=== PATIENT | female | born 1985 | race African-American/Black ===

== ENCOUNTER 2017-06-07 16:18 | Emergency (ER) | payer BC ==
[2017-06-07] MEDS ORDERED: AMLODIPINE BESYLATE 5 MG TABLET PO ONE (18:25)
--- NOTE | 2017-06-07 18:27 | ER Document Report ---
ED Medical Screen (RME) - General Chief Complaint: Sore Throat Stated Complaint: POSSIBLE HIVES/SORE THROAT/FOREHEAD PAIN Time Seen by Provider: 06/07/17 18:14 Mode of Arrival: Ambulatory Information source: Patient Notes: 31-year-old female with a history of hypertension in the past (previous on lisinopril, stopped because of a cough), the presents to the emergency room complaining of intermittent hives. Patient also states she has had some swelling in the forehead. Patient denies chest pain, shortness of breath. Patient denies any significant weight loss. She denies any abdominal pain. TRAVEL OUTSIDE OF THE [place] IN LAST 30 DAYS: No - HPI Onset: Just prior to arrival Onset/Duration: Gradual Quality of pain: No pain Severity: Mild Associated Symptoms: denies: Chest pain, Fever, Sinus pain/drainage Exacerbated by: Denies Relieved by: Denies Similar symptoms previously: No Recently seen / treated by doctor: No - Related Data Smoking: Non-smoker Frequency of alcohol use: None Drug Abuse: None Allergies/Adverse Reactions: No Known Allergies Allergy (Verified 06/07/17 16:23) Past Medical History - General Information source: Patient - Social History Cigarette use (# per day): No Chew tobacco use (# tins/day): No Frequency of alcohol use: None Drug Abuse: None Lives with: Family Family history: Reviewed & Not Pertinent - Past Medical History Cardiac Medical History: Reports: Hx Hypertension Renal/ Medical History: Denies: Hx Peritoneal Dialysis Surgical Hx: Negative Review of Systems - Review of Systems Constitutional: denies: Chills, Fever, Weight gain EENT: No symptoms reported Cardiovascular: See HPI Respiratory: No symptoms reported Gastrointestinal: No symptoms reported Genitourinary: No symptoms reported Female Genitourinary: No symptoms reported Musculoskeletal: No symptoms reported Skin: No symptoms reported Hematologic/Lymphatic: No symptoms reported Neurological/Psychological: No symptoms reported Physical Exam - Vital signs Vitals: Temp Pulse Resp BP Pulse Ox 97.4 F 98 20 221/132 H 99 06/07/17 16:24 06/07/17 16:24 06/07/17 16:24 06/07/17 16:24 06/07/17 16:24 Notes: Physical exam: GENERAL: 31-year-old female, alert and oriented 3, sitting up in RME. She is in no distress at all. The hives have since resolved. HEAD: Atraumatic, normocephalic. EYES: Pupils equal round and reactive to light, extraocular movements intact, sclera anicteric, conjunctiva are normal. ENT: TMs normal, nares patent, oropharynx clear without exudates. Moist mucous membranes. NECK: Normal range of motion, supple without lymphadenopathy or JVD. LUNGS: Breath sounds clear to auscultation bilaterally and equal. No wheezes rales or rhonchi. HEART: Regular rate and rhythm without murmurs, rubs or gallops. ABDOMEN: Soft, normoactive bowel sounds. No tenderness to palpation. No guarding, no rebound. No masses appreciated. EXTREMITIES: Normal range of motion, no pitting or edema. No clubbing or cyanosis. NEUROLOGICAL: Cranial nerves II through XII grossly intact. Normal speech, normal gait. PSYCH: Normal mood, normal affect. SKIN: Warm, Dry, normal turgor, no rashes or lesions noted. Course - Re-evaluation Re-evalutation: 06/07/17 19:44 : Patient's hypertension is asymptomatic. On repeat examination, her lungs are clear and her heart regular she is currently in no distress. We will start amlodipine and have given her prescription. I will have her come back in 2 days (Saturday) for repeat blood pressure check. I have asked her to call Dr. Parry's office on Saturday for repeat blood pressure check. - Vital Signs Vital signs: Temp Pulse Resp BP Pulse Ox 98.3 F 86 14 214/148 H 99 06/07/17 19:42 06/07/17 19:42 06/07/17 19:42 06/07/17 19:42 06/07/17 19:42 - Laboratory Result Diagrams: 06/07/17 18:30 06/07/17 18:30 Laboratory results interpreted by me: 06/07/17 18:30 RBC 5.45 H MCV 71 L MCH 22.1 L MCHC 31.3 L RDW 17.2 H Doctor's Discharge - Discharge Clinical Impression: Hypertension Condition: Stable Disposition: HOME, SELF-CARE Instructions: High Blood Pressure ([facility]) Additional Instructions: Recommendations: Take the blood pressure medicine as prescribed. Follow-up with Dr. Parry: Call the office on Saturday and tell them you are in the emergency room for very high blood pressure check in the ER doctor wanted you seen in the next week for repeat blood pressure check. Dr. Parry will be able to see all your blood work (his computer is hooked up with the hospital) . Return to the emergency room for any chest pain, shortness of breath or any concerns you might have. Return to the ER saturday for a repeat blood pressure check Prescriptions: Amlodipine Besylate 10 mg PO DAILY #30 tab Referrals: CHICO PARRY MD [ACTIVE STAFF] - Follow up as needed (This is the The internal medicine doctor that I want you to follow-up with. Call the office on Saturday.)
[2017-06-07 18:56] LABS: ABSOLUTE BASOPHILS # (AUTO) 0.1 10^3/uL (0.0-0.2); ABSOLUTE EOSINOPHILS # (AUTO) 0.1 10^3/uL (0.0-0.6); ABSOLUTE MONOCYTES (AUTO) 0.8 10^3/uL (0.1-1.4); ABSOLUTE NEUT (AUTO) 5.8 10^3/uL (1.7-8.2); BASOPHILS % (AUTO) 0.6 % (0-2); EOSINOPHILS % (AUTO) 1.6 % (0-6); HEMATOCRIT 38.5 % (36.0-47.0); HEMOGLOBIN 12.1 g/dL (12.0-15.5); HGB HCT DIFFERENCE -2.2; LYMPHOCYTES % (AUTO) 22.4 % (13-45); MEAN CORPUSCULAR HEMOGLOBIN 22.1 pg (27.0-33.4); MEAN CORPUSCULAR HGB CONC 31.3 g/dL (32.0-36.0); MEAN CORPUSCULAR VOLUME 71 fl (80-97); MONOCYTES % (AUTO) 9.6 % (3-13); RED BLOOD COUNT 5.45 10^6/uL (3.72-5.28); RED CELL DISTRIBUTION WIDTH 17.2 % (11.5-14.0); SEGMENTED NEUTROPHILS % (AUTO) 65.8 % (42-78); WHITE BLOOD COUNT 8.9 10^3/uL (4.0-10.5)
[2017-06-07 19:08] LABS: ALANINE AMINOTRANSFERASE 25 U/L (9-52); ALBUMIN 4.4 g/dL (3.5-5.0); ALKALINE PHOSPHATASE 90 U/L (38-126); ANION GAP 11 (5-19); ASPARTATE AMINO TRANSFERASE 18 U/L (14-36); BILIRUBIN,DIRECT 0.3 mg/dL (0.0-0.4); BILIRUBIN,TOTAL 0.5 mg/dL (0.2-1.3); BLOOD UREA NITROGEN 9 mg/dL (7-20); CALCIUM 9.6 mg/dL (8.4-10.2); CARBON DIOXIDE 27 mmol/L (22-30); CHLORIDE 102 mmol/L (98-107); CREATININE RESULT 0.94 mg/dL (0.52-1.25); GLUCOSE 84 mg/dL (75-110); POTASSIUM 4.5 mmol/L (3.6-5.0); TOTAL PROTEIN 7.9 g/dL (6.3-8.2)
[2017-06-07 19:43] VITALS: BP 214/148
== END 2017-06-07 19:45 | disposition home or self-care (01) ==
LOC: ER 16:18
DX: I10 Essential (primary) hypertension (principal); L50.9 Urticaria, unspecified; R22.0 Localized swelling, mass and lump, head
CPT/HCPCS: 36415; 80053; 84443; 85025; 99283

== ENCOUNTER → 2017-08-12 | Outpatient (CLI) | payer BC ==
--- NOTE | 2017-08-12 11:11 | RADIOLOGY REPORT (SQ) ---
EXAM DESCRIPTION: U/S RETROPERITON (RENAL/AORTA); U/S LTD DUPLEX ART/GABE FLOW COMPLETED DATE/TIME: 08/12/2017 10:47 am; 08/12/2017 10:48 am REASON FOR STUDY: HYPERTENSIVE URGENCY I16.0 HYPERTENSIVE URGENCY COMPARISON: None. TECHNIQUE: Realtime and static grayscale images acquired. Selected color Doppler, velocities and spe ctral images recorded. LIMITATIONS: Difficulty visualizing the renal arteries off the aorta FINDINGS: RIGHT KIDNEY: RENAL ARTERY VELOCITIES: At the right renal hilum, 67 cm/sec. Segmental artery velocity 58 cm/sec. RENAL VEIN: Color doppler flow present, patent. VELOCITY RATIO: 0.95. Normal waveforms. KIDNEY: 9 cm in length. No significant pathology. LEFT KIDNEY: RENAL ARTERY VELOCITIES: At the left renal hilum, 80.4 cm/sec. Segmental artery velocity 58 cm/sec. RENAL VEIN: Color doppler flow present, patent. VELOCITY RATIO: 1.2. Normal waveforms. KIDNEY: 9.5 cm in length. No significant pathology. BLADDER: Decompressed, not visualized OTHER: No other significant finding. IMPRESSION: NO DOPPLER EVIDENCE OF HEMODYNAMICALLY SIGNIFICANT RENAL ARTERY STENOSIS. COMMENT: NORMAL RENAL ARTERY/AORTA VELOCITY RATIO IS LESS THAN OR EQUAL TO 3.5. TECHNICAL DOCUMENTATION: JOB ID: [id number] [employer]- All Rights Reserved
== END ==
LOC: RAD 09:38
PROVIDERS: ATTEND Internal Medicine Geriatric Medicine
DX: I16.0 Hypertensive urgency (principal)
CPT/HCPCS: 76770; 93976

== ENCOUNTER → 2018-06-21 | Outpatient (CLI) | payer BC ==
[2018-06-21 09:47] LABS: ABSOLUTE BASOPHILS # (AUTO) 0.1 10^3/uL (0.0-0.2); ABSOLUTE EOSINOPHILS # (AUTO) 0.1 10^3/uL (0.0-0.6); ABSOLUTE LYMPHOCYTES (AUTO) 1.9 10^3/uL (0.5-4.7); ABSOLUTE MONOCYTES (AUTO) 0.6 10^3/uL (0.1-1.4); ABSOLUTE NEUT (AUTO) 5.2 10^3/uL (1.7-8.2); BASOPHILS % (AUTO) 0.7 % (0-2); EOSINOPHILS % (AUTO) 1.1 % (0-6); MEAN CORPUSCULAR HEMOGLOBIN 23.7 pg (27.0-33.4); MEAN CORPUSCULAR HGB CONC 32.3 g/dL (32.0-36.0); MEAN CORPUSCULAR VOLUME 73 fl (80-97); MONOCYTES % (AUTO) 8.2 % (3-13); PLATELET COUNT 249 10^3/uL (150-450); RED BLOOD COUNT 4.64 10^6/uL (3.72-5.28); TOTAL CELLS COUNTED % (AUTO) 100 %; WHITE BLOOD COUNT 7.8 10^3/uL (4.0-10.5)
[2018-06-21 10:03] LABS: ALANINE AMINOTRANSFERASE 44 U/L (9-52); ALKALINE PHOSPHATASE 72 U/L (38-126); ANION GAP 14 (5-19); ASPARTATE AMINO TRANSFERASE 31 U/L (14-36); BILIRUBIN,DIRECT 0.3 mg/dL (0.0-0.4); BILIRUBIN,TOTAL 0.3 mg/dL (0.2-1.3); BLOOD UREA NITROGEN 6 mg/dL (7-20); CALCIUM 9.6 mg/dL (8.4-10.2); CARBON DIOXIDE 24 mmol/L (22-30); CHLORIDE 106 mmol/L (98-107); CHOLESTEROL 177.26 mg/dL (0-200); GLUCOSE 86 mg/dL (75-110); POTASSIUM 4.4 mmol/L (3.6-5.0); SODIUM 144.2 mmol/L (137-145); TOTAL PROTEIN 7.5 g/dL (6.3-8.2); TRIGLYCERIDES 62 mg/dL (<150)
[2018-06-21 10:13] LABS: DIRECT LDL 101 mg/dL (<100)
== END ==
LOC: OD 08:09
PROVIDERS: ATTEND Internal Medicine Geriatric Medicine
DX: I10 Essential (primary) hypertension (principal)
CPT/HCPCS: 36415; 80053; 80061; 85025

== ENCOUNTER 2019-03-12 12:58 | Emergency (ER) | payer BC ==
--- NOTE | 2019-03-12 15:41 | ER Document Report ---
ED Medical Screen (RME) - General Chief Complaint: Blood Pressure Problem Stated Complaint: POSSIBLE HIGH BLOOD PRESSURE Time Seen by Provider: 03/12/19 15:33 Primary Care Provider: CHICO PARRY MD [Primary Care Provider] - Follow up as needed Mode of Arrival: Ambulatory Information source: Patient TRAVEL OUTSIDE OF THE [place] IN LAST 30 DAYS: No - HPI Patient complains to provider of: htn Notes: 03/12/19 15:39 Patient here with complaints of elevated blood pressure. The patient with a history of hypertension since she was 17 years old. He was supposed to be on amlodipine as well as another blood pressure medication that was recalled has not been taking any medications for her blood pressure since November. She recently found that she was . She thinks she is about 6 weeks . She went to her primary care's office and it was noted to be extremely hypertensive. She was given a dose of clonidine and was sent to the emergency department. She denies any headache or blurred vision. No numbness, tingling, weakness. No chest pain. She does complain of some mild shortness of breath. Exam Mild distress, nontoxic-appearing, lungs clear and equal throughout. Heart sounds normal. Nonfocal neuro exam. Plan CBC, CMP, CPK, CK-MB, troponin, EKG, urinalysis. An initial examination was made on the patient as part of the triage process, and it was determined a more comprehensive evaluation was necessary. Initial labs were ordered and patient was transferred to another provider in the ED who assumed care and finished evaluation and plan. - Related Data Allergies/Adverse Reactions: No Known Allergies Allergy (Verified 03/12/19 13:11) Past Medical History - Social History Family history: Reviewed & Not Pertinent - Past Medical History Cardiac Medical History: Reports: Hx Hypertension Renal/ Medical History: Denies: Hx Peritoneal Dialysis Physical Exam - Vital signs Vitals: Temp Pulse Resp Pulse Ox 99.2 F 106 H 16 100 03/12/19 13:27 03/12/19 13:27 03/12/19 13:03/12/19 13:27 Course - Vital Signs Vital signs: Temp Pulse Resp BP Pulse Ox 99.2 F 112 H 16 170/116 H 99 03/12/19 13:27 03/12/19 13:29 03/12/19 13:27 03/12/19 13:29 03/12/19 13:29 Doctor's Discharge - Discharge Referrals: CHICO PARRY MD [Primary Care Provider] - Follow up as needed
--- NOTE | 2019-03-12 16:14 | RADIOLOGY REPORT (SQ) ---
EXAM DESCRIPTION: CHEST SINGLE VIEW COMPLETED DATE/TIME: 03/12/2019 4:05 pm REASON FOR STUDY: sob COMPARISON: None. EXAM PARAMETERS: NUMBER OF VIEWS: One view. TECHNIQUE: Single frontal radiographic view of the chest acquired. RADIATION DOSE: NA LIMITATIONS: None. FINDINGS: LUNGS AND PLEURA: No opacities, masses or pneumothorax. No pleural effusion. MEDIASTINUM AND HILAR STRUCTURES: No masses. Contour normal. HEART AND VASCULAR STRUCTURES: The cardiac silhouette is enlarged in the aorta appears to be somewhat tortuous, much greater than expected for patient's age. BONES: No acute findings. HARDWARE: None in the chest. OTHER: No other significant finding. IMPRESSION: Enlargement of the cardiac silhouette suggests cardiomegaly. No pulmonary findings. TECHNICAL DOCUMENTATION: JOB ID: [id number] [employer]- All Rights Reserved Reading location - IP/workstation name: [email or web address]
[2019-03-12 16:20] LABS: APPEARANCE,URINE SLIGHTLY-CLOUDY; BILIRUBIN,URINE NEGATIVE (NEGATIVE); CALCIUM OXALATE CRYSTALS,URINE RARE /HPF; COLOR,URINE AMBER; GLUCOSE, URINE NEGATIVE (NEGATIVE); KETONES,URINE TRACE mg/dL (NEGATIVE); LEUKOCYTE ESTERASE,URINE NEGATIVE (NEGATIVE); NITRITE,URINE NEGATIVE (NEGATIVE); PROTEIN,URINE 100 mg/dL (NEGATIVE); URINE SPECIFIC GRAVITY 1.029
[2019-03-12 16:22] LABS: PROTHROMBIN TIME 13.7 SEC (11.4-15.4)
[2019-03-12 16:25] LABS: ABSOLUTE BASOPHILS # (AUTO) 0.1 10^3/uL (0.0-0.2); ABSOLUTE EOSINOPHILS # (AUTO) 0.1 10^3/uL (0.0-0.6); ABSOLUTE LYMPHOCYTES (AUTO) 2.1 10^3/uL (0.5-4.7); ABSOLUTE MONOCYTES (AUTO) 1.1 10^3/uL (0.1-1.4); ABSOLUTE NEUT (AUTO) 6.8 10^3/uL (1.7-8.2); BASOPHILS % (AUTO) 1.1 % (0-2); EOSINOPHILS % (AUTO) 1.1 % (0-6); HEMATOCRIT 32.9 % (36.0-47.0); HEMOGLOBIN 10.1 g/dL (12.0-15.5); LYMPHOCYTES % (AUTO) 20.9 % (13-45); MEAN CORPUSCULAR HEMOGLOBIN 19.4 pg (27.0-33.4); MEAN CORPUSCULAR HGB CONC 30.7 g/dL (32.0-36.0); MONOCYTES % (AUTO) 10.6 % (3-13); PLATELET COUNT 303 10^3/uL (150-450); RED BLOOD COUNT 5.21 10^6/uL (3.72-5.28); RED CELL DISTRIBUTION WIDTH 19.6 % (11.5-14.0); SEGMENTED NEUTROPHILS % (AUTO) 66.3 % (42-78); TOTAL CELLS COUNTED % (AUTO) 100 %; WHITE BLOOD COUNT 10.3 10^3/uL (4.0-10.5)
[2019-03-12 16:35] LABS: ALANINE AMINOTRANSFERASE 34 U/L (9-52); ALBUMIN 4.3 g/dL (3.5-5.0); ALKALINE PHOSPHATASE 87 U/L (38-126); ANION GAP 11 (5-19); ASPARTATE AMINO TRANSFERASE 27 U/L (14-36); BILIRUBIN,DIRECT 0.3 mg/dL (0.0-0.4); BILIRUBIN,TOTAL 0.5 mg/dL (0.2-1.3); BLOOD UREA NITROGEN 12 mg/dL (7-20); CALCIUM 10.1 mg/dL (8.4-10.2); CARBON DIOXIDE 25 mmol/L (22-30); CHLORIDE 103 mmol/L (98-107); CREATINE KINASE 69 U/L (30-135); GLUCOSE 89 mg/dL (75-110); POTASSIUM 4.2 mmol/L (3.6-5.0); SODIUM 138.5 mmol/L (137-145); TOTAL PROTEIN 7.8 g/dL (6.3-8.2)
[2019-03-12 16:46] LABS: CREATINE KINASE MB < 0.22 ng/mL (<4.55); TROPONIN I < 0.012 ng/mL
[2019-03-12 16:57] LABS: PLATELET COMMENT ADEQUATE
[2019-03-12 16:58] LABS: ANISOCYTOSIS 2+
[2019-03-12 17:02] LABS: HYPOCHROMASIA 1+; OVALOCYTES SLIGHT; POIKILOCYTOSIS 1+; POLYCHROMASIA SLIGHT; SCHISTOCYTES SLIGHT; TARGET CELLS SLIGHT; TEAR DROP CELLS SLIGHT
[2019-03-12 17:03] LABS: MEAN CORPUSCULAR VOLUME 63 fl (80-97)
--- NOTE | 2019-03-12 19:38 | EKG REPORT ---
SEVERITY:- ABNORMAL ECG - SINUS RHYTHM PROBABLE LEFT ATRIAL ABNORMALITY LEFT VENTRICULAR HYPERTROPHY : Confirmed by: Neli Mitchell MD 12-Mar-2019 19:38:14
[2019-03-12] MEDS ORDERED: LABETALOL HCL 200 MG TABLET PO ONE (20:39)
[2019-03-12] MEDS ORDERED: HYDRALAZINE HCL INJ/PF 20 MG/1 ML SDV IV ONE ×2 (20:39→22:24)
[2019-03-12] MEDS ORDERED: ACETAMINOPHEN 325 MG TABLET PO ONE (22:17)
--- NOTE | 2019-03-12 22:27 | ER Document Report ---
Entered by RODDY CASTANO SCRIBE 03/12/192034 Acting as scribe for:NADYA CHAU MD ED Blood Pressure Problem - General Chief Complaint: Blood Pressure Problem Stated Complaint: POSSIBLE HIGH BLOOD PRESSURE Time Seen by Provider: 03/12/19 15:33 Primary Care Provider: [facility] [Provider Group] - Follow up in 3-5 days (Call [facility] tomorrow to schedule an appointment for Saturday or Saturday.) CHICO PARRY MD [Primary Care Provider] - Follow up as needed Mode of Arrival: Ambulatory Notes: 33-year-old female who presents the emergency department today with complaints of elevated blood pressures. Patient was seen by her primary care physician today to have her blood pressure medicine switched as she was on valsartan and she stopped taking it due to recall and her pressures were 200s/100s. Patient is also 6 weeks stating her last mensrtual period was January 30. TRAVEL OUTSIDE OF THE [place] IN LAST 30 DAYS: No - Related Data Allergies/Adverse Reactions: No Known Allergies Allergy (Verified 03/12/19 13:11) Past Medical History - General Information source: Patient - Social History Smoking Status: Never Smoker Cigarette use (# per day): No Chew tobacco use (# tins/day): No Frequency of alcohol use: None Drug Abuse: None Lives with: Family Family History: Reviewed & Not Pertinent, Other - adopted Patient has suicidal ideation: No Patient has homicidal ideation: No - Past Medical History Cardiac Medical History: Reports: Hx Hypertension Review of Systems - Review of Systems Constitutional: No symptoms reported EENT: No symptoms reported Cardiovascular: See HPI, Other - hypertension Respiratory: No symptoms reported Gastrointestinal: No symptoms reported Genitourinary: No symptoms reported Female Genitourinary: See HPI, Musculoskeletal: No symptoms reported Skin: No symptoms reported Hematologic/Lymphatic: No symptoms reported Neurological/Psychological: No symptoms reported -: Yes All other systems reviewed and negative Physical Exam - Vital signs Vitals: Temp Pulse Resp Pulse Ox 99.2 F 106 H 16 100 03/12/19 13:27 03/12/19 13:27 03/12/19 13:27 03/12/19 13:27 - Notes Notes: Physical Exam: General: Alert, appears well. HEENT: Normocephalic. Atraumatic. PERRL. Extraocular movements intact. Oropharynx clear. Neck: Supple. Non-tender. Respiratory: No respiratory distress. Clear and equal breath sounds bilaterally. Cardiovascular: Regular rate and rhythm. Abdominal: Obesity. No distension. Normal Bowel Sounds. Back: Non-tender. No deformity or step off. Extremities: Moves all four extremities. Upper extremities: Normal inspection. Normal ROM. Lower extremities: Normal inspection. No edema. Normal ROM. Neurological: Normal cognition. AAOx4. Normal speech. Psychological: Normal affect. Normal Mood. Skin: Warm. Dry. Normal color. Course - Re-evaluation Re-evalutation: 03/12/19 23:11 The patient's blood pressure had remained above 190 systolic and a pulse of 110 despite 200 mg of labetalol PO, and a 20 mg IV dose of hydralazine. She was complaining about not feeling well and needing to eat. She did receive some food that was obtained by her nurse. She was also given some Tylenol for a headache. She was given an additional 20 mg IV dose of hydralazine, and about 30 minutes later her pressure precipitously dropped to about 110 systolic with a pulse of 85. She stated that she did not feel well and she was encouraged to lay down. A 1 L bolus of IV normal saline was ordered. 03/12/19 23:16 She does state at this time that her headache is better. 03/12/19 23:51 After 1 L of normal saline, patient is feeling better and her blood pressure is up to 127/77. Urine specific gravity had been concentrated 1.029, so we will give an additional liter of D5 LR and then discharge home. - Vital Signs Vital signs: Temp Pulse Resp BP Pulse Ox 99.2 F 112 H 15 107/69 100 03/12/19 13:27 03/12/19 13:29 03/12/19 23:10 03/12/19 23:10 03/12/19 23:10 - Laboratory Result Diagrams: 03/12/19 15:56 03/12/19 15:56 Laboratory results interpreted by me: 03/12/19 03/12/19 03/12/19 15:56 15:56 15:56 Hgb 10.1 L Hct 32.9 L MCV 63 L MCH 19.4 L MCHC 30.7 L RDW 19.6 H Beta HCG, Quant 5798.80 H Urine Protein 100 H Urine Ketones TRACE H Urine Urobilinogen 2.0 H - Consults Dr. Figueredo Time consulted: 20:32 Consulted provider: follow-up in office - Recommends trying Normodyne 200 twice daily and see in the office Saturday to see how well her blood pressure is controlled. Discharge - Discharge Clinical Impression: Poorly-controlled hypertension, Early stage of Iron deficiency anemia Qualifiers: Iron deficiency anemia type: unspecified iron deficiency Qualified Code(s): D50.9 - Iron deficiency anemia, unspecified Condition: Stable Disposition: HOME, SELF-CARE Additional Instructions: Anemia, Iron Deficiency You have anemia (a lower than normal amount of red blood cells). Our tests show it's due to lack of iron in your body. In infants and children, iron deficiency is usually due to lack of iron in the diet. In adults, it's most often caused by blood loss (heavy periods or intestinal bleeding) or by . If the cause of iron deficiency is not clear, we evaluate for hidden intestinal bleeding. Another possible cause is failure to absorb iron properly. Iron-deficiency is treated with iron supplements. Iron pills can upset your stomach and cause constipation. Taking it with food decreases nausea. Expect the stool to become darker (but not black). Taking iron with a juice high in vitamin C (orange juice, tomato juice) increases absorption. You can increase your dietary iron by eating liver, oysters, and lean beef; wheat germ, peas, and lentils; and molasses, dried prunes, spinach, and broccoli. Contact the doctor at once if you note black or tarry-looking stools, bloody vomiting, shortness of breath, chest pain, or faintness. You are . care is best started as early in as possible. If you're unsure about continuing this , you should discuss this with your physician or with [facility] at [facility]. You should take only medications approved by your physician. Acetaminophen can safely be taken for minor pains. As a rule, medication for chronic conditions such as asthma or seizures can safely be continued. You should discuss with the physician every medicine you take. Any regular exercise program can be continued. Talk to your physician, however, before engaging in competitive or demanding sports. Alcohol, smoking, and "street drugs" are dangerous to your baby. Cocaine is especially dangerous. Don't use any illicit drugs! Take the medications as prescribed. Increase iron in your diet. Call [facility] tomorrow to schedule a follow-up appointment for Saturday to start care and to check your blood pressure. Prescriptions: Labetalol HCl [Normodyne 200 mg Tablet] 200 mg PO Q12 #60 tablet Pnv,Calcium 72/Iron/Folic Acid [ Plus Tablet] 1 each PO DAILY #100 tablet Referrals: CHICO PARRY MD [Primary Care Provider] - Follow up as needed [facility] [Provider Group] - Follow up in 3-5 days (Call [facility] tomorrow to schedule an appointment for Saturday or Saturday.) Scribe Attestation: 03/12/19 20:49 I personally performed the services described in the documentation, reviewed and edited the documentation which was dictated to the scribe in my presence, and it accurately records my words and actions. I personally performed the services described in the documentation, reviewed and edited the documentation which was dictated to the scribe in my presence, and it accurately records my words and actions.
[2019-03-12] MEDS ORDERED: NORMAL SALINE 1000 ML 1,000 ML IV ONE (23:10)
[2019-03-12] MEDS ORDERED: DEXTROSE 5%-LACTATED RINGERS 1,000 ML IV ONE (23:49)
[2019-03-13] MEDS ORDERED: ONDANSETRON 4 MG TAB.RAPDIS PO ONE (01:43)
[2019-03-13 02:01] VITALS: BP 151/99
[2019-03-13 11:47] LABS: PATH REVIEW PATHOLOGIST REVIEWED
== END 2019-03-13 02:02 | disposition home or self-care (01) ==
LOC: ER 12:58
DX: O16.1 Unspecified maternal hypertension, first trimester (principal); Z79.899 Other long term (current) drug therapy; O99.011 Anemia complicating pregnancy, first trimester; D50.9 Iron deficiency anemia, unspecified; O26.891 Other specified pregnancy related conditions, first trimester; R51 Headache; Z3A.01 Less than 8 weeks gestation of pregnancy
CPT/HCPCS: 93005; 96376; 99284; 96361; 96374; 36415; 82553; 82550; 84702; 85025; 85610; 80053; 81001; 84484; 71045; 93010; S0119; J0360; J7121; J7030

== ENCOUNTER 2019-04-04 18:25 | Emergency (ER) | payer BC ==
--- NOTE | 2019-04-04 19:17 | ER Document Report ---
ED Medical Screen (RME) - General Chief Complaint: Vag Bleeding, +preg <12wks Stated Complaint: VAGINAL BLEEDING Time Seen by Provider: 04/04/19 19:14 Primary Care Provider: CHICO PARRY MD [Primary Care Provider] - Follow up as needed Mode of Arrival: Ambulatory Information source: Patient Notes: Patient is currently 8 weeks and has had vaginal spotting for the past week. Patient states that the bleeding increased today. Patient is G1, P0. Patient does complain of some mild dizziness. No urinary symptoms, no abdominal tenderness. I have greeted and performed a rapid initial assessment of this patient. A comprehensive ED assessment and evaluation of the patient, analysis of test results and completion of the medical decision making process will be conducted by additional ED providers. TRAVEL OUTSIDE OF THE [place] IN LAST 30 DAYS: No - Related Data Allergies/Adverse Reactions: No Known Allergies Allergy (Verified 03/12/19 13:11) Past Medical History - General Last Menstrual Period: 01/30/19 - Social History Frequency of alcohol use: None Drug Abuse: None Family history: Reviewed & Not Pertinent - Past Medical History Cardiac Medical History: Reports: Hx Hypertension Renal/ Medical History: Denies: Hx Peritoneal Dialysis Physical Exam - Vital signs Vitals: Temp Pulse Resp BP Pulse Ox 98.7 F 93 12 168/104 H 100 04/04/19 18:46 04/04/19 18:46 04/04/19 18:46 04/04/19 18:46 04/04/19 18:46 - General General appearance: Appears well, Alert In distress: None Course - Vital Signs Vital signs: Temp Pulse Resp BP Pulse Ox 98.7 F 93 12 168/104 H 100 04/04/19 18:46 04/04/19 18:46 04/04/19 18:46 04/04/19 18:46 04/04/19 18:46 Doctor's Discharge - Discharge Referrals: CHICO PARRY MD [Primary Care Provider] - Follow up as needed
[2019-04-04 20:24] LABS: APPEARANCE,URINE SLIGHTLY-CLOUDY; BILIRUBIN,URINE NEGATIVE (NEGATIVE); COLOR,URINE YELLOW; GLUCOSE, URINE NEGATIVE (NEGATIVE); KETONES,URINE NEGATIVE (NEGATIVE); LEUKOCYTE ESTERASE,URINE NEGATIVE (NEGATIVE); NITRITE,URINE NEGATIVE (NEGATIVE); PROTEIN,URINE 30 mg/dL (NEGATIVE); URINE SPECIFIC GRAVITY 1.019
[2019-04-04 21:04] LABS: ABSOLUTE EOSINOPHILS # (AUTO) 0.1 10^3/uL (0.0-0.6); ABSOLUTE LYMPHOCYTES (AUTO) 1.8 10^3/uL (0.5-4.7); ABSOLUTE MONOCYTES (AUTO) 1.1 10^3/uL (0.1-1.4); ABSOLUTE NEUT (AUTO) 7.4 10^3/uL (1.7-8.2); BASOPHILS % (AUTO) 0.5 % (0-2); EOSINOPHILS % (AUTO) 1.2 % (0-6); HEMATOCRIT 35.3 % (36.0-47.0); HEMOGLOBIN 10.7 g/dL (12.0-15.5); MEAN CORPUSCULAR HEMOGLOBIN 20.3 pg (27.0-33.4); MEAN CORPUSCULAR HGB CONC 30.3 g/dL (32.0-36.0); MONOCYTES % (AUTO) 10.8 % (3-13); PLATELET COUNT 252 10^3/uL (150-450); RED BLOOD COUNT 5.26 10^6/uL (3.72-5.28); RED CELL DISTRIBUTION WIDTH 25.5 % (11.5-14.0); SEGMENTED NEUTROPHILS % (AUTO) 70.5 % (42-78); TOTAL CELLS COUNTED % (AUTO) 100 %; WHITE BLOOD COUNT 10.4 10^3/uL (4.0-10.5)
[2019-04-04 21:05] LABS: MEAN CORPUSCULAR VOLUME 67 fl (80-97)
--- NOTE | 2019-04-04 21:18 | RADIOLOGY REPORT (SQ) ---
EXAM DESCRIPTION: US TRANSVAGINAL COMPLETED DATE/TME: 04/04/2019 19:16 CLINICAL HISTORY: vag bleeding COMPARISON: None. FINDINGS: There is a single intrauterine with pole measuring 7.6 mm corresponding to six weeks and five days. No heart motion is visualized compatible with a demise. The uterus [id number] x 8.8 x 9.6 cm and contains two focal masses, largest one measuring 8.5 x 7.9 x 5.8 cm compatible with fibroids. There is no adnexal mass. The right ovary measured 4.1 x 2.9 x 2.4 cm. The left ovary was not visualized. There is no adnexal mass. IMPRESSION: Findings compatible with a demise.
[2019-04-04 21:19] LABS: ANISOCYTOSIS 2+; HYPOCHROMASIA 2+; OVALOCYTES 1+; PLATELET COMMENT ADEQUATE; SCHISTOCYTES SLIGHT; STOMATOCYTES SLIGHT; TARGET CELLS 1+
--- NOTE | 2019-04-04 22:07 | ER Document Report ---
ED GI/ - General Chief Complaint: Vag Bleeding, +preg <12wks Stated Complaint: VAGINAL BLEEDING Time Seen by Provider: 04/04/19 19:14 Primary Care Provider: [id number] [Provider Group] - Follow up as needed CHICO PARRY MD [Primary Care Provider] - Follow up as needed Mode of Arrival: Ambulatory Information source: Patient Notes: Patient is a 33-year-old female G1, P0 presented to the emergency department at approximate 8 weeks gestation according to her dates with complaints of vaginal bleeding. Patient reports she is started vaginally bleeding about 6 days ago, she states the bleeding was just a light spotting however today it increased and she actually had to wear a pad. Patient reports changing her pad once every 3-4 hours. 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 Patient denies any abdominal cramping, denies the passage of any clots. She does report history of chronic anemia. TRAVEL OUTSIDE OF THE [place] IN LAST 30 DAYS: No - Related Data Allergies/Adverse Reactions: No Known Allergies Allergy (Verified 03/12/19 13:11) Past Medical History - General Information source: Patient Last Menstrual Period: 01/30/19 - Social History Smoking Status: Never Smoker Frequency of alcohol use: None Drug Abuse: None Family History: Reviewed & Not Pertinent, Other - adopted Patient has suicidal ideation: No Patient has homicidal ideation: No - Past Medical History Cardiac Medical History: Reports: Hx Hypertension Renal/ Medical History: Denies: Hx Peritoneal Dialysis Review of Systems - Review of Systems Constitutional: No symptoms reported EENT: No symptoms reported Cardiovascular: No symptoms reported Respiratory: No symptoms reported Gastrointestinal: No symptoms reported Genitourinary: No symptoms reported Female Genitourinary: Vaginal bleeding Musculoskeletal: No symptoms reported Skin: No symptoms reported Hematologic/Lymphatic: No symptoms reported Neurological/Psychological: No symptoms reported Physical Exam - Vital signs Vitals: Temp Pulse Resp BP Pulse Ox 98.7 F 93 12 168/104 H 100 04/04/19 18:46 04/04/19 18:46 04/04/19 18:46 04/04/19 18:46 04/04/19 18:46 - Notes Notes: PHYSICAL EXAMINATION: GENERAL: Well-appearing, well-nourished and in no acute distress. HEAD: Atraumatic, normocephalic. EYES: Pupils equal round and reactive to light, extraocular movements intact, conjunctiva are normal. ENT: Nares patent, oropharynx clear without exudates. Moist mucous membranes. NECK: Normal range of motion, supple without lymphadenopathy LUNGS: Breath sounds clear to auscultation bilaterally and equal. No wheezes rales or rhonchi. HEART: Regular rate and rhythm without murmurs ABDOMEN: Soft, nontender, nondistended abdomen. No guarding, no rebound. No masses appreciated. Female : No CVA tenderness. Speculum exam deferred as patients bleeding is very mild and patient is requesting no vaginal exam. Musculoskeletal: Normal range of motion, no pitting or edema. No cyanosis. NEUROLOGICAL: Cranial nerves grossly intact. Normal speech, normal gait. Normal sensory, motor exams PSYCH: Normal mood, normal affect. SKIN: Warm, Dry, normal turgor, no rashes or lesions noted. Course - Re-evaluation Re-evalutation: Patient appears well, nontoxic and vital signs are within normal limits. Quant itative hCG is 41,685. CBC and CMP are unremarkable. Patient's transvaginal ultrasound does show a approximate 6-week 5-day fetus with no cardiac activity consistent with demise. RhoGam is not indicated as patient is Rh+. Findings were discussed with the patient. Patient very tearful upon learning the news of the demise. Patient has an appointment scheduled with [facility] for this coming up Saturday. Her bleeding is very light at this time. I did discuss with patient that she may need medical management if she does not complete the miscarriage on her own or they may need to do a dilation and curettaged. Patient verbalized understanding and agreement with plan. Strict ED return precautions were discussed. - Vital Signs Vital signs: Temp Pulse Resp BP Pulse Ox 98.9 F 86 17 168/108 H 99 04/04/19 22:17 04/04/19 22:17 04/04/19 22:17 04/04/19 22:19 04/04/19 22:17 - Laboratory Result Diagrams: 04/04/19 20:50 Laboratory results interpreted by me: 04/04/19 04/04/19 04/04/19 19:55 19:55 20:50 Hgb 10.7 L Hct 35.3 L MCV 67 L D MCH 20.3 L MCHC 30.3 L RDW 25.5 H Beta HCG, Quant 76198.00 H Urine Protein 30 H Urine Blood LARGE H Urine Urobilinogen 2.0 H Urine Ascorbic Acid 40 H Discharge - Discharge Clinical Impression: Vaginal bleeding during Condition: Stable Disposition: HOME, SELF-CARE Additional Instructions: Miscarriage Impending You have been evaluated for a possible miscarriage. At this time, it appears that the fetus has stopped growing. A miscarriage occurs when the fetus is abn ormal. There is no medicine or treatment to prevent it. If bleeding is not severe, and if your pain can be controlled with medicine, you could complete the miscarriage at home. If that's not practical, or if the miscarriage doesn't progress spontaneously, we will arrange for a D&C procedure. You should rest in bed. Do not douche or have sex for at least a week, or until OK'd by the doctor. If you believe you've passed the fetus, collect it in a zip-lock plastic bag. Be sure to follow up with your doctor. Call the doctor or return for re- examination if there is an increase in bleeding or cramping, extreme weakness, fainting, fever, or passage of tissue. Please call [facility] Saturday morning, let them know you were seen in the emergency department for vaginal bleeding and her ultrasound showed no cardiac activity. If you develop cramping please take ibuprofen 600 mg every 6 hours. Use the narcotic pain medication for severe pain only. Take Zofran as prescribed. Return to the emergency department with increased bleeding, bleeding through more than 1 pad per hour for 4 hours consecutively, you pass out or feel weak, or you develop a fever. We are happy to reevaluate you here in the emergency department. Prescriptions: Hydrocodone Bit/Acetaminophen [Hydrocodon-Acetaminophen 5-325] 1 each PO Q4H #12 tablet Ondansetron [Zofran Odt 4 mg Tablet] 1 - 2 tab PO Q4H PRN #15 tab.rapdis PRN Reason: For Nausea/Vomiting Forms: Return to Work Referrals: CHICO PARRY MD [Primary Care Provider] - Follow up as needed [facility] [Provider Group] - Follow up as needed
[2019-04-04 22:20] VITALS: BP 168/108
== END 2019-04-04 22:26 | disposition home or self-care (01) ==
LOC: ER 18:25
DX: O20.9 Hemorrhage in early pregnancy, unspecified (principal); Z3A.08 8 weeks gestation of pregnancy
CPT/HCPCS: 36415; 76817; 81001; 84702; 85025; 86900; 86901; 99284

== ENCOUNTER 2019-08-18 16:37 | Emergency (ER) | payer BC ==
[2019-08-18] MEDS ORDERED: LABETALOL HCL INJ 20 MG/4 ML DISP.SYRIN IV ONE (16:52)
--- NOTE | 2019-08-18 16:53 | ER Document Report ---
ED Medical Screen (RME) - General Chief Complaint: High Blood Pressure Stated Complaint: HIGH BLOOD PRESSURE Time Seen by Provider: 08/18/19 16:45 Primary Care Provider: CHICO PARRY MD [Primary Care Provider] - Follow up as needed Notes: 34-year-old female with hypertension presents to the emergency department with chief complaint of dizziness, neck pain, headache. Patient states that she is on labetalol and another medication after she developed gestational hypertension from a . Patient's states that she sees "black spots" in her vision but denies diplopia or blurred vision, states that she is able to make urine but it is dark in color, denies acute chest pain, denies shortness of breath, states that she feels generally unwell. Exam: NEURO: A &O X 3, normal speech, normal gailt, PERRL, EOMI, SILT, follows commands in all 4 extremities, no gross abnormalities of cranial nerves, no focal neuro deficits, no pronator drift, [id number] testing normal, rapid alternating hand movements normal, [id number] normal, program director cable television strength 5/5 bilateral, 5/5 strength in both proximal and distal upper and lower extremities CARDIAC: Regular cardiac rate and rhythm, no murmurs heard I have greeted and performed a rapid initial assessment of this patient. A comprehensive ED assessment and evaluation of the patient, analysis of test results and completion of medical decision making process will be conducted by an additional ED providers. TRAVEL OUTSIDE OF THE [place] IN LAST 30 DAYS: No - Related Data Allergies/Adverse Reactions: No Known Allergies Allergy (Verified 03/12/19 13:11) Past Medical History - Social History Frequency of alcohol use: None Drug Abuse: None Family history: Reviewed & Not Pertinent - Past Medical History Cardiac Medical History: Reports: Hx Hypertension Renal/ Medical History: Denies: Hx Peritoneal Dialysis Physical Exam - Vital signs Vitals: Temp Pulse Resp BP Pulse Ox 97.9 F 75 20 196/132 H 100 08/18/19 16:46 08/18/19 16:46 08/18/19 16:46 08/18/19 16:46 08/18/19 16:46 Course - Vital Signs Vital signs: Temp Pulse Resp BP Pulse Ox 97.9 F 75 20 196/132 H 100 08/18/19 16:46 08/18/19 16:46 08/18/19 16:46 08/18/19 16:46 08/18/19 16:46 Doctor's Discharge - Discharge Referrals: CHICO PARRY MD [Primary Care Provider] - Follow up as needed
[2019-08-18 17:17] LABS: HEMATOCRIT 36.4 % (36.0-47.0); MEAN CORPUSCULAR HEMOGLOBIN 20.3 pg (27.0-33.4); MEAN CORPUSCULAR HGB CONC 30.3 g/dL (32.0-36.0); MEAN CORPUSCULAR VOLUME 67 fl (80-97); PLATELET COUNT 372 10^3/uL (150-450); RED BLOOD COUNT 5.44 10^6/uL (3.72-5.28); RED CELL DISTRIBUTION WIDTH 18.1 % (11.5-14.0); WHITE BLOOD COUNT 20.7 10^3/uL (4.0-10.5)
--- NOTE | 2019-08-18 17:20 | ER Document Report ---
ED General - General Chief Complaint: High Blood Pressure Stated Complaint: HIGH BLOOD PRESSURE Time Seen by Provider: 08/18/19 16:45 Notes: Patient is a 34-year-old female with hypertension that presents to the emergency department for chief complaint of fatigue. Patient states that she has been feeling more fatigued and lightheaded over the past few days, she states she has high blood pressure and is been running higher, she is on labetalol, that she was put on after she became over the summer, but she had a miscarriage in April, and continued on the labetalol she was previously on amlodipine and what she states is a water pill, but has not been placed back on this. She is had off-and-on headaches, occasionally seeing "black spots", but denies vision loss, chest pain, shortness of breath or difficulty breathing, denies any vomiting, or decrease in urination. Past Medical History: Hypertension Past Surgical History: Denies surgical history Social History: Denies tobacco, alcohol or drug use. Family History: Reviewed and noncontributory for presenting illness Allergies: Reviewed, see documented allergy list. REVIEW OF SYSTEMS: Other than noted above, the 12 point review of systems was reviewed with the patient and were negative, all pertinent findings are included in the HPI. PHYSICAL EXAMINATION: Vital signs reviewed, nursing noted reviewed. GENERAL: Well-appearing, well-nourished and in no acute distress. HEAD: Atraumatic, normocephalic. EYES: Eyes appear normal, extraocular movements intact, sclera anicteric, conjunctiva are normal. ENT: nares patent, oropharynx clear without exudates. Moist mucous membranes. NECK: Normal range of motion, supple without lymphadenopathy LUNGS: Breath sounds clear to auscultation bilaterally and equal. No wheezes rales or rhonchi. HEART: Regular rate and rhythm without murmurs ABDOMEN: Soft, nontender, normoactive bowel sounds. No rebound, guarding, or rigidity. No masses appreciated. EXTREMITIES: Nontender, good range of motion, no pitting or edema. NEUROLOGICAL: No focal neurological deficits. Moves all extremities spontaneously Motor and sensory grossly intact on exam. PSYCH: Normal mood, normal affect. SKIN: Warm, Dry, normal turgor, no rashes or lesions noted on exposed skin TRAVEL OUTSIDE OF THE [place] IN LAST 30 DAYS: No - Related Data Allergies/Adverse Reactions: No Known Allergies Allergy (Verified 03/12/19 13:11) Past Medical History - Social History Smoking Status: Unknown if Ever Smoked Frequency of alcohol use: None Drug Abuse: None Family History: Reviewed & Not Pertinent, Other - adopted Patient has suicidal ideation: No Patient has homicidal ideation: No - Past Medical History Cardiac Medical History: Reports: Hx Hypertension Renal/ Medical History: Denies: Hx Peritoneal Dialysis Physical Exam - Vital signs Vitals: Temp Pulse Resp BP Pulse Ox 97.9 F 75 20 196/132 H 100 08/18/19 16:46 08/18/19 16:46 08/18/19 16:46 08/18/19 16:46 08/18/19 16:46 Course - Re-evaluation Re-evalutation: Patient seen and examined, vital signs reviewed, patient noted to be markedly hypertensive, she initially was given labetalol 10 mg in triage, which had little improvement to her blood pressure, she is given 20 mg of IV hydralazine which did bring her blood pressure temporally down to 170 systolic, however blood pressure continued to rise again, and then was ordered to be on Cardene, initially plan to admit this patient however she started complaining of neck pain, which she did not mention initial history taking, and she is having neck stiffness as well which she states she is had off and on for the past 2 and half days, but got worse today. The pain seems to be getting worse, and therefore I decided to order CT imaging of the head, did not show discrete bleed, but did show concern for cerebral edema, at this point I decided to get a lumbar puncture on this patient, LP was performed, single insertion, without difficulty, and there was blood noted in all 4 tubes, I do not feel that this is a bloody tap, I am concerned because after this LP finding, and CT findings, this patient likely has subarachnoid hemorrhage, will order CTA, but called was placed to transfer the patient to a tertiary facility, for further evaluation and management as I am concerned for subarachnoid hemorrhage in this patient. Patient's blood work was reviewed, she did have an acute kidney injury from her prior labs, likely from hypertension, she is also had protein in her urine again from likely hypertension, she also had a white blood cell count of 20,000, concerning for likely stress reactant from what I suppose and resume as a subara chnoid hemorrhage until proven otherwise. Patient was updated on these results, and plan for transfer. Discussed case with transfer center at [facility]. In the meantime CT A was ordered. I discussed case with the interventional neurologist Dr. Hilton, who felt this was less likely SAH, and wished to discuss with neurology discussed with neurologist at [facility] who refused to accept patient, without CTA and CSF results. Patient transfer and results were delayed, CTA imaging of the head was eventually interpreted by radiology as possible Left MCA aneurysm, but not de finite, there was delay in resulting of CSF as well, but eventually came back as RBCs in both tubes 1 and 4 with minimal dilution. Discussed again with Dr. Hilton and then with hospitalist at [facility] who then informed there were on regional deferment and could not take the patient at this time, despite my concern for SAH that cannot be definitely ruled out at this time. At this point I placed a call to [facility] in [place], [place] to expedite transfer of this patient. Patient blood pressure currently controlled on Cardene infusion. 08/18/19 22:54 I received a call back from [facility] stating they had a bed available in their MICU, I notified [facility] of this update and patient to be transferred to [facility] as soon as transport available. 08/18/19 23:20 Patient seen prior to transport stable at this time. Laboratory 08/18/19 08/18/19 08/18/19 17:00 17:00 17:00 WBC 20.7 H RBC 5.44 H Hgb 11.0 L Hct 36.4 MCV 67 L MCH 20.3 L MCHC 30.3 L RDW 18.1 H Plt Count 372 Lymph % (Auto) Not Reportable Dawes % (Auto) Not Reportable Eos % (Auto) Not Reportable Baso % (Auto) Not Reportable Reticulocyte # Absolute Neuts (auto) Not Reportable Absolute Lymphs (auto) Not Reportable Absolute Monos (auto) Not Reportable Absolute Eos (auto) Not Reportable Absolute Basos (auto) Not Reportable Total Counted 100 Seg Neutrophils % Not Reportable Seg Neuts % (Manual) 89 H Lymphocytes % (Manual) 6 L Monocytes % (Manual) 5 Eosinophils % (Manual) 0 Basophils % (Manual) 0 Abs Neuts (Manual) 18.4 H Abs Lymphs (Manual) 1.2 Abs Monocytes (Manual) 1.0 Absolute Eos (Manual) 0.0 Abs Basophils (Manual) 0.0 Nucleated RBCs 1 Platelet Comment ADEQUATE Hypochromasia 1+ Anisocytosis 1+ Microcytosis 2+ Retic Count (auto) PT INR APTT Sodium 137.6 Potassium 4.1 Chloride 101 Carbon Dioxide 24 Anion Gap 13 BUN 34 H Creatinine 1.76 H Est GFR ( Amer) 40 L Est GFR (MDRD) Non-Af 33 L Glucose 101 Calcium 10.3 H Iron TIBC % Saturation Ferritin Total Bilirubin 0.5 Direct Bilirubin 0.2 Neonat Total Bilirubin Not Reportable Neonat Direct Bilirubin Not Reportable Neonat Indirect Bili Not Reportable AST 26 ALT 29 Alkaline Phosphatase 110 Troponin I < 0.012 Total Protein 8.6 H Albumin 4.7 Vitamin B12 Folate Urine Color Urine Appearance Urine pH Ur Specific Alexis Urine Protein Urine Glucose (UA) Urine Ketones Urine Blood Urine Nitrite Urine Bilirubin Urine Urobilinogen Ur Leukocyte Esterase Urine WBC (Auto) Urine RBC (Auto) U Hyaline Cast (Auto) Urine Bacteria (Auto) Squamous Epi Cells Auto Urine Mucus (Auto) Urine Ascorbic Acid Urine HCG, Qual 08/18/19 08/18/19 08/18/19 17:00 17:00 17:00 WBC RBC Hgb Hct MCV MCH MCHC RDW Plt Count Lymph % (Auto) Dawes % (Auto) Eos % (Auto) Baso % (Auto) Reticulocyte # 0.114 Absolute Neuts (auto) Absolute Lymphs (auto) Absolute Monos (auto) Absolute Eos (auto) Absolute Basos (auto) Total Counted Seg Neutrophils % Seg Neuts % (Manual) Lymphocytes % (Manual) Monocytes % (Manual) Eosinophils % (Manual) Basophils % (Manual) Abs Neuts (Manual) Abs Lymphs (Manual) Abs Monocytes (Manual) Absolute Eos (Manual) Abs Basophils (Manual) Nucleated RBCs Platelet Comment Hypochromasia Anisocytosis Microcytosis Retic Count (auto) 2.07 PT 15.0 INR 1.17 APTT 30.9 Sodium Potassium Chloride Carbon Dioxide Anion Gap BUN Creatinine Est GFR ( Amer) Est GFR (MDRD) Non-Af Glucose Calcium Iron 22.6 L TIBC 487 H % Saturation 5 Ferritin 10.30 Total Bilirubin Direct Bilirubin Neonat Total Bilirubin Neonat Direct Bilirubin Neonat Indirect Bili AST ALT Alkaline Phosphatase Troponin I Total Protein Albumin Vitamin B12 862.0 Folate > 20.00 Urine Color Urine Appearance Urine pH Ur Specific Alexis Urine Protein Urine Glucose (UA) Urine Ketones Urine Blood Urine Nitrite Urine Bilirubin Urine Urobilinogen Ur Leukocyte Esterase Urine WBC (Auto) Urine RBC (Auto) U Hyaline Cast (Auto) Urine Bacteria (Auto) Squamous Epi Cells Auto Urine Mucus (Auto) Urine Ascorbic Acid Urine HCG, Qual 08/18/19 17:21 WBC RBC Hgb Hct MCV MCH MCHC RDW Plt Count Lymph % (Auto) Dawes % (Auto) Eos % (Auto) Baso % (Auto) Reticulocyte # Absolute Neuts (auto) Absolute Lymphs (auto) Absolute Monos (auto) Absolute Eos (auto) Absolute Basos (auto) Total Counted Seg Neutrophils % Seg Neuts % (Manual) Lymphocytes % (Manual) Monocytes % (Manual) Eosinophils % (Manual) Basophils % (Manual) Abs Neuts (Manual) Abs Lymphs (Manual) Abs Monocytes (Manual) Absolute Eos (Manual) Abs Basophils (Manual) Nucleated RBCs Platelet Comment Hypochromasia Anisocytosis Microcytosis Retic Count (auto) PT INR APTT Sodium Potassium Chloride Carbon Dioxide Anion Gap BUN Creatinine Est GFR ( Amer) Est GFR (MDRD) Non-Af Glucose Calcium Iron TIBC % Saturation Ferritin Total Bilirubin Direct Bilirubin Neonat Total Bilirubin Neonat Direct Bilirubin Neonat Indirect Bili AST ALT Alkaline Phosphatase Troponin I Total Protein Albumin Vitamin B12 Folate Urine Color DARK YELLOW Urine Appearance CLOUDY Urine pH 5.0 Ur Specific Alexis 1.030 Urine Protein >=500 H Urine Glucose (UA) NEGATIVE Urine Ketones NEGATIVE Urine Blood NEGATIVE Urine Nitrite NEGATIVE Urine Bilirubin NEGATIVE Urine Urobilinogen NEGATIVE Ur Leukocyte Esterase SMALL H Urine WBC (Auto) 17 Urine RBC (Auto) 5 U Hyaline Cast (Auto) 2 Urine Bacteria (Auto) TRACE Squamous Epi Cells Auto 42 Urine Mucus (Auto) MOD Urine Ascorbic Acid NEGATIVE Urine HCG, Qual NEGATIVE Chest X-Ray 08/18/19 17:24 IMPRESSION: NO ACUTE RADIOGRAPHIC FINDING IN THE CHEST. Head CT 08/18/19 19:02 IMPRESSION: Mild effacement of the sulci compared with the 2015 exam, correlate clinically to exclude cerebral edema. No hemorrhage. No midline shift. EVIDENCE OF ACUTE STROKE: NO. Head CTA 08/18/19 19:45 IMPRESSION: Limited study. No definite aneurysm is seen. Loop of vessel in the proximal left middle cerebral artery. Either normal variation or small aneurysm. TECHNICAL DOCUMENTATION: Quality ID # [id number]: Final reports with documentation of one or more dose reduction techniques (e.g., Automated exposure control, adjustment of the mA and/or kV according to patient size, use of iterative reconstruction technique) Neck CTA 08/18/19 19:51 IMPRESSION: Unremarkable CT angiogram of the neck. - Vital Signs Vital signs: Temp Pulse Resp BP Pulse Ox 98.2 F 75 12 145/82 H 99 08/18/19 21:52 08/18/19 16:46 08/18/19 23:33 08/18/19 23:33 08/18/19 23:33 - Laboratory Result Diagrams: 08/18/19 17:00 08/18/19 17:00 Laboratory results interpreted by me: 08/18/19 08/18/19 08/18/19 17:00 17:00 17:00 WBC 20.7 H RBC 5.44 H Hgb 11.0 L MCV 67 L MCH 20.3 L MCHC 30.3 L RDW 18.1 H Seg Neuts % (Manual) 89 H Lymphocytes % (Manual) 6 L Abs Neuts (Manual) 18.4 H BUN 34 H Creatinine 1.76 H Est GFR ( Amer) 40 L Est GFR (MDRD) Non-Af 33 L Calcium 10.3 H Iron 22.6 L TIBC 487 H Total Protein 8.6 H Urine Protein Ur Leukocyte Esterase 08/18/19 17:21 WBC RBC Hgb MCV MCH MCHC RDW Seg Neuts % (Manual) Lymphocytes % (Manual) Abs Neuts (Manual) BUN Creatinine Est GFR ( Amer) Est GFR (MDRD) Non-Af Calcium Iron TIBC Total Protein Urine Protein >=500 H Ur Leukocyte Esterase SMALL H - EKG Interpretation by Me Additional EKG results interpreted by me: EKG demonstrates sinus rhythm with a ventricular rate of 75 bpm, left axis deviation, QTC 452 ms, borderline voltage criteria for LVH, no ST elevation. Compared with prior EKG from 03/12/2019, without significant change. Critical Care Note - Critical Care Note Total time excluding time spent on procedures (mins): 50 Comments: Critical care time 50 minutes exclusive from separate billable procedures for a patient requiring complex medical decision making, and high potential for clinical deterioration. In a patient with suspected subarachnoid hemorrhage, hypertensive emergency, requiring infusion of nicardipine, multiple conver sations with consultants and ultimately transfer to tertiary facility. Time spent obtaining history from patient or surrogate, discussions with consultants, development of treatment plan with patient or surrogate, evaluation of patient's response to treatment, examination of patient, ordering and performing treatments and interventions, ordering and review of laboratory studies, re- evaluation of patient's condition, ordering and review of radiographic studies and review of old charts Discharge - Discharge Clinical Impression: Hypertensive emergency, SATHYA (acute kidney injury), High cerebrospinal fluid red blood cell count Leukocytosis Qualifiers: Leukocytosis type: unspecified Qualified Code(s): D72.829 - Elevated white blood cell count, unspecified Condition: Stable Disposition: [facility] Admitting Provider: Vel [facility] Admitted: [facility]
[2019-08-18 17:34] LABS: ALBUMIN 4.7 g/dL (3.5-5.0); ALKALINE PHOSPHATASE 110 U/L (38-126); ANION GAP 13 (5-19); ASPARTATE AMINO TRANSFERASE 26 U/L (14-36); BILIRUBIN,DIRECT 0.2 mg/dL (0.0-0.4); BILIRUBIN,TOTAL 0.5 mg/dL (0.2-1.3); BLOOD UREA NITROGEN 34 mg/dL (7-20); CALCIUM 10.3 mg/dL (8.4-10.2); CARBON DIOXIDE 24 mmol/L (22-30); CHLORIDE 101 mmol/L (98-107); GLUCOSE 101 mg/dL (75-110); POTASSIUM 4.1 mmol/L (3.6-5.0); TOTAL PROTEIN 8.6 g/dL (6.3-8.2)
[2019-08-18 17:41] LABS: ABSOLUTE LYMPHOCYTES# (MANUAL) 1.2 10^3/uL (0.5-4.7); BASOPHILS % (MANUAL) 0 % (0-2); EOSINOPHILS % (MANUAL) 0 % (0-6); LYMPHOCYTES % (MANUAL) 6 % (13-45); MONOCYTES % (MANUAL) 5 % (3-13); NUCLEATED RED BLOOD CELLS 1 /100 WBC (0); SEGMENTED NEUTROPHILS % (MAN) 89 % (42-78); TOTAL CELLS COUNTED 100
[2019-08-18 17:43] LABS: ANISOCYTOSIS 1+; HYPOCHROMASIA 1+; PLATELET COMMENT ADEQUATE
[2019-08-18] MEDS ORDERED: HYDRALAZINE HCL INJ/PF 20 MG/1 ML SDV IV ONE (17:48)
[2019-08-18 17:49] LABS: APPEARANCE,URINE CLOUDY; BILIRUBIN,URINE NEGATIVE (NEGATIVE); COLOR,URINE DARK YELLOW; GLUCOSE, URINE NEGATIVE (NEGATIVE); KETONES,URINE NEGATIVE (NEGATIVE); LEUKOCYTE ESTERASE,URINE SMALL (NEGATIVE); NITRITE,URINE NEGATIVE (NEGATIVE); PROTEIN,URINE >=500 mg/dL (NEGATIVE); UROBILINOGEN,URINE NEGATIVE mg/dL (<2.0)
--- NOTE | 2019-08-18 17:59 | EKG REPORT ---
SEVERITY:- ABNORMAL ECG - SINUS RHYTHM PROBABLE LEFT ATRIAL ABNORMALITY LEFT VENTRICULAR HYPERTROPHY : Confirmed by: Emilee Givens 18-Aug-2019 17:58:50
--- NOTE | 2019-08-18 18:14 | RADIOLOGY REPORT (SQ) ---
EXAM DESCRIPTION: CHEST 2 VIEWS COMPLETED DATE/TIME: 08/18/2019 5:52 pm REASON FOR STUDY: weakness COMPARISON: 03/12/2019 EXAM PARAMETERS: NUMBER OF VIEWS: two views TECHNIQUE: Digital Frontal and Lateral radiographic views of the chest acquired. RADIATION DOSE: NA LIMITATIONS: none FINDINGS: LUNGS AND PLEURA: No opacities, masses or pneumothorax. No pleural effusion. MEDIASTINUM AND HILAR STRUCTURES: No masses or contour abnormalities. HEART AND VASCULAR STRUCTURES: Heart normal size. No evidence for failure. BONES: No acute findings. HARDWARE: None in the chest. OTHER: No other significant finding. IMPRESSION: NO ACUTE RADIOGRAPHIC FINDING IN THE CHEST. TECHNICAL DOCUMENTATION: JOB ID: [id number] [employer]- All Rights Reserved Reading location - IP/workstation name: [email or web address]
[2019-08-18 18:27] LABS: ABSOLUTE RETICS # 0.114 10^6/uL (0.028-0.122); IRON(TIBC) 22.6 ug/dL (37-170); RETICULOCYTE COUNT (AUTO) 2.07 % (0.66-2.85)
[2019-08-18] MEDS ORDERED: NORMAL SALINE 1000 ML 1,000 ML IV ONE (18:48)
[2019-08-18] MEDS ORDERED: LIDOCAINE 1% INJ-PF (10 MG/ML) 30 ML SDV INJ ONE (19:02)
[2019-08-18] MEDS ORDERED: OXYCODONE-ACETAMINOPHEN 5-325 MG TABLET PO ONE (19:10)
[2019-08-18] MEDS: NICARDIPINE HCL RTU, ISO-OS 20 MG/200 ML RTUINJ IV PRN ×3 (19:27→22:55)
[2019-08-18 19:34] LABS: INTERNATIONAL RATION (INR) 1.17
[2019-08-18 19:35] LABS: PARTIAL THROMBOPLASTIN TIME 30.9 SEC (23.5-35.8)
[2019-08-18 19:36] LABS: A TYPE INFLUENZA AG NEGATIVE (NEGATIVE)
[2019-08-18 19:37] LABS: FOLATE > 20.00 ng/mL (>2.76)
[2019-08-18 19:37] LABS: B INFLUENZA AG NEGATIVE (NEGATIVE)
[2019-08-18] MEDS ORDERED: FENTANYL CITRATE INJ/PF 100 MCG/2 ML AMPUL IV ONE ×2 (19:45→23:20)
--- NOTE | 2019-08-18 19:45 | RADIOLOGY REPORT (SQ) ---
EXAM DESCRIPTION: CT HEAD WITHOUT COMPLETED DATE/TIME: 08/18/2019 7:18 pm REASON FOR STUDY: generalized weakness COMPARISON: 08/26/2015 TECHNIQUE: Axial images acquired through the brain without intravenous contrast. Images reviewed wit h bone, brain and subdural windows. Images stored on PACS. All CT scanners at this facility use dose modulation, iterative reconstruction, and/or weight based d osing when appropriate to reduce radiation dose to as low as reasonably achievable (ALARA). [facility]: Dose Right [facility]: CareDose [facility]: Dose Right [facility]: Teradose 4D [facility]: Smart MedTest DX RADIATION DOSE: CT Rad equipment meets quality standard of care and radiation dose reduction techniq ues were employed. CTDIvol: 53.2 mGy. DLP: 991 mGy-cm.. LIMITATIONS: None. FINDINGS: VENTRICLES: Normal size and contour. CEREBRUM: Mild effacement of the sulci compared with the 2014 exam. No hemorrhage. No midline shift. Age appropriate white matter. No evidence for acute infarction. CEREBELLUM: No masses. No hemorrhage. No alteration of density. No evidence for acute infarction. EXTRA-AXIAL SPACES: No fluid collections. ORBITS AND GLOBE: No intra- or extraconal masses. Normal contour of globe without masses. CALVARIUM: No fracture. PARANASAL SINUSES: No fluid or mucosal thickening. SOFT TISSUES: No mass or hematoma. OTHER: No other significant finding. IMPRESSION: Mild effacement of the sulci compared with the 2014 exam, correlate clinically to exclud e cerebral edema. No hemorrhage. No midline shift. EVIDENCE OF ACUTE STROKE: NO. COMMENT: The findings were sent to the Radiology Results Communication [facility] at 19:39 on 9 to be communicated to a licensed caregiver. TECHNICAL DOCUMENTATION: JOB ID: [id number] [place]-72 Quality ID # 436: Final reports with documentation of one or more dose reduction techniques (e.g., Au tomated exposure control, adjustment of the mA and/or kV according to patient size, use of iterative reconstruction technique) 2010 [employer]- All Rights Reserved Reading location - IP/workstation name: [email or web address] [place]
[2019-08-18 20:24] LABS: GLUCOSE,CSF 53 mg/dL (40-70); PROTEIN,CSF 48 mg/dL (12-60)
--- NOTE | 2019-08-18 20:39 | RADIOLOGY REPORT (SQ) ---
EXAM DESCRIPTION: CLINICAL HISTORY: 34 years Female . Stiff neck... Blood in CSF. COMPARISON: None TECHNIQUE: Axial images with IV contrast. Multiple reconstructions. 70 mL Omnipaque 300. This exam was performed according to our departmental dose-optimization program, which includes automated exposure control, adjustment of the mA and/or kV according to patient size and/or use of iterative reconstruction technique.. FINDINGS: Upper lung jimenez with motion artifact without obvious findings. Great vessels originating from the aorta are unremarkable. Patent bilateral vertebral arteries. Common carotid internal carotid arteries are unremarkable. No suspicious venous abnormality. No suspicious findings in the cervical spine. IMPRESSION: Unremarkable CT angiogram of the neck.
[2019-08-18 21:26] LABS: CSF TUBE NUMBER 1
[2019-08-18 21:27] LABS: APPEARANCE ALL TUBES HAZY; APPEARANCE TUBE 1 HAZY; APPEARANCE TUBE 2 HAZY; APPEARANCE TUBE 3 HAZY; APPEARANCE TUBE 4 HAZY; COLOR ALL TUBES PINK; COLOR TUBE 1 PINK; COLOR TUBE 2 PINK; COLOR TUBE 3 PINK; COLOR TUBE 4 PINK
[2019-08-18 21:28] LABS: CSF TOTAL VOLUME 6.5 CC; VOLUME TUBE 2 1.5 CC; VOLUME TUBE 3 1.5 CC; VOLUME TUBE 4 1.5 CC
[2019-08-18 21:30] LABS: WHITE BLOOD CELL,CSF 7 /uL (0-5)
[2019-08-18 21:31] LABS: APPEARANCE ALL TUBES HAZY; APPEARANCE TUBE 1 HAZY; APPEARANCE TUBE 2 HAZY; APPEARANCE TUBE 3 HAZY; APPEARANCE TUBE 4 HAZY; COLOR ALL TUBES PINK; COLOR TUBE 1 PINK; COLOR TUBE 2 PINK; COLOR TUBE 3 PINK; COLOR TUBE 4 PINK; CSF TUBE NUMBER 4
[2019-08-18 21:32] LABS: CSF TOTAL VOLUME 6.5 CC; VOLUME TUBE 2 1.5 CC; VOLUME TUBE 3 1.5 CC; VOLUME TUBE 4 1.5 CC
[2019-08-18 21:33] LABS: WHITE BLOOD CELL,CSF 4 /uL (0-5)
--- NOTE | 2019-08-18 21:33 | RADIOLOGY REPORT (SQ) ---
EXAM DESCRIPTION: CT HEAD ANGIOGRAPHY WITHOUT THEN WITH IV CONTRAST COMPLETED DATE/TME: 08/18/2019 19:45 CLINICAL HISTORY: 34 years, Female, headache, neck stiffness, blood in csf COMPARISON: CT of the head from today. TECHNIQUE: Study performed with IV contrast. 70 mL Omnipaque 300. Multiple reconstructions. Images stored on PACS. All CT scanners at this facility use dose modulation, iterative reconstruction, and/or weight based dosing when appropriate to reduce radiation dose to as low as reasonably achievable (ALARA). FINDINGS: Mild to moderate motion artifact. Mildly suboptimal opacification of the vessels. No suspicious of vessel narrowing. There is loop appearance of the proximal left middle cerebral artery. Series 3 images 86-88 series 202 image 41. Difficult to determine if represents a simple lobe or small aneurysm. Study is technically limited.. IMPRESSION: Limited study. No definite aneurysm is seen. Loop of vessel in the proximal left middle cerebral artery. Either normal variation or small aneurysm. TECHNICAL DOCUMENTATION: Quality ID # [id number]: Final reports with documentation of one or more dose reduction techniques (e.g., Automated exposure control, adjustment of the mA and/or kV according to patient size, use of iterative reconstruction technique)
[2019-08-18 22:15] LABS: MONONUCLEAR CELLS CSF 32 %; POLYMORPHONUCLEAR CELLS CSF 68 %
[2019-08-18 22:19] LABS: RED BLOOD CELL,CSF 970 /uL (0-10)
[2019-08-18 22:20] LABS: RED BLOOD CELL,CSF 1435 /uL (0-10)
[2019-08-18 23:47] VITALS: BP 145/82
== END 2019-08-18 23:47 | disposition short-term general hospital (02) ==
LOC: ER 16:37 → EH 18:53 → UNDOADMIN 18:53 → ER 23:47 → EH 08-19 17:20
DX: I16.0 Hypertensive urgency (principal); N17.9 Acute kidney failure, unspecified; R83.8 Other abnormal findings in cerebrospinal fluid; D72.829 Elevated white blood cell count, unspecified; I10 Essential (primary) hypertension; R53.83 Other fatigue; R42 Dizziness and giddiness; Z79.899 Other long term (current) drug therapy
CPT/HCPCS: 93005; 99291; 96361; 96374; 96375; 36415; 87070; 87086; 87205; 82607; 82728; 82746; 83540; 83550; 85025; 85610; 85730; 89050; 82945; 84157; 81025; 87088; 85045; 80053; 81001; 84484; 87804; 71046; 70450; 70496; 70498; 93010; J3010; J0360; J3490 ×3; J7030